=== PATIENT | female | born 1995 ===

== ENCOUNTER 2025-04-03 12:17 | Outpatient (CLI) | payer OTHER | END 2025-04-03 12:21 | disposition home or self-care (01) | LOC: PRENATAL 12:17 | PROVIDERS: ATTEND Obstetrics & Gynecology Maternal & Fetal Medicine | DX: O44.00 Complete placenta previa NOS or without hemorrhage, unspecified trimester (principal); Z3A.20 20 weeks gestation of pregnancy ==

== ENCOUNTER 2025-06-26 19:01 | Inpatient (IN) | payer OTHER ==
[~2025-06-26] VITALS: Ht 162.6 cm; Wt 66.2 kg
[2025-06-26 18:50] VITALS: BP 90/56
[2025-06-26] MEDS ORDERED: BETAMETHASONE ACETATE,SOD PHOS 30 MG/5 ML ML ONE (19:16)
[2025-06-26] MEDS ORDERED: PRENATAL CAPLE1 EAC1 PO (21:08)
[2025-06-26 21:09] LABS: BASO % 0.4 % (0.1-1.2); EOS # 0.11 (0.04-0.54); EOS % 0.9 % (0.7-7.0); LYMPH # 2.21 (1.18-3.74); LYMPH % 17.7 % (19.3-53.1); MEAN PLATELET VOLUME 10.10 fl (9.4-12.4); MONO # 0.77 (0.24-0.82); MONO % 6.2 % (4.7-12.5); NEUT # 9.20 (1.56-6.13); NEUT % 73.7 % (34.0-71.1); RED CELL DISTRIBUTION WIDTH 12.8 % (11.6-14.4)
[2025-06-26 21:13] LABS: URINE APPEARANCE Clear; URINE BILIRRUBIN Negative (NEGATIVE); URINE BLOOD Negative; URINE COLOR Yellow; URINE GLUCOSE Negative (NEGATIVE); URINE KETONE Negative (NEGATIVE); URINE LEUKOCYTE Trace; URINE NITRATE Negative; URINE PROTEIN Negative (NEGATIVE); URINE UROBILINOGEN 0.2 E.U./dl
[2025-06-26] MEDS ORDERED: RINGERS SOLUTION,LACTATED 1,000 ML IV SCH (21:15)
[2025-06-26] MEDS ORDERED: BETAMETHASONE ACETATE,SOD PHOS 30 MG/5 ML ML IM ONE (21:15)
[2025-06-26 21:19] LABS: URINE BACTERIA 187.1 uL (0.0-1933); URINE EPITHELIAL CELLS 10.5 uL (0.0-38.8); URINE WBC 15.3 uL (0.0-23.2)
[2025-06-26 21:29] LABS: URINE CAST 0.00 uL (0.0-1.40); URINE RBC 0.7 uL (0.0-20.8)
[2025-06-26 21:40] LABS: INR 0.94
[2025-06-26 21:44] LABS: ALT/SGPT 18.0 U/L (12-78); AST/SGOT 14.0 U/L (15-37); BILIRUBIN TOTAL 0.52 mg/dL (0.3-1.2); BUN CREA RATIO 12.0 (7.0-25.0); CREATININE SERUM 0.84 mg/dL (0.55-1.02); GFR 80.16; GLOBULINA 3.4 G/DL (2.4-3.5); GLUCOSE FASTING 83.0 mg/dL (65-100); OSMOLALITY SERUM 279.0 MOSM/KG (275-295)
[2025-06-27 00:28] VITALS: BP 90/57
[2025-06-27 03:54] VITALS: BP 90/54
[2025-06-27 07:18] VITALS: BP 90/60; O2SAT 97
[2025-06-27 11:02] VITALS: BP 83/50
[2025-06-27 15:16] VITALS: BP 99/54; O2SAT 99
[2025-06-27] MEDS ORDERED: DOCUSATE SODIUM 100MG CAP PO SCH (17:00)
[2025-06-27] MEDS ORDERED: BETAMETHASONE ACETATE,SOD PHOS 30 MG/5 ML ML IM ONE (21:15)
== END 2025-06-27 18:52 | disposition home or self-care (01) | DRG 833 ==
LOC: LDR 19:01
PROVIDERS: ADMIT Obstetrics & Gynecology; ATTEND Obstetrics & Gynecology
PROC: 4A1HXCZ Monitoring of Products of Conception, Cardiac Rate, External Approach (ICD-10-PCS; principal; 2025-06-26)
PROC: BY4FZZZ Ultrasonography of Third Trimester, Single Fetus (ICD-10-PCS; 2025-06-27)
DX: O36.8130 Decreased fetal movements, third trimester, not applicable or unspecified (principal); O26.843 Uterine size-date discrepancy, third trimester; Z3A.32 32 weeks gestation of pregnancy